=== PATIENT | female | born 1950 | race Asian ===

== ENCOUNTER 2018-12-30 19:49 | Emergency (ER) | payer OTHER ==
[~2018-12-30] VITALS: Ht 153 cm; Wt 53.6 kg
[2018-12-30] MEDS ORDERED: LOSA50TA64 PO (20:08)
[2018-12-30] MEDS ORDERED: ROSU10TA22 PO (20:08)
[2018-12-30] MEDS ORDERED: LORA10TA7 PO (20:08)
[2018-12-30 21:30] VITALS: BP 148/83
[2018-12-30] MEDS ORDERED: DiphenhydrAMINE HCL 25 MG CAPSULE PO ONE (22:00)
[2018-12-30] MEDS ORDERED: CLINDAMYCIN HCL 150 MG CAPSULE PO ONE (22:00)
== END 2018-12-30 22:30 | disposition home or self-care (01) ==
LOC: EMS 19:53
DX: H04.123 Dry eye syndrome of bilateral lacrimal glands (principal); T49.5X5A Adverse effect of ophthalmological drugs and preparations, initial encounter; E78.00 Pure hypercholesterolemia, unspecified; I10 Essential (primary) hypertension; Z90.49 Acquired absence of other specified parts of digestive tract; Z79.899 Other long term (current) drug therapy; Y92.89 Other specified places as the place of occurrence of the external cause

== ENCOUNTER 2019-03-03 13:50 | Emergency (ER) | payer MEDICAID, OTHER ==
[~2019-03-03] VITALS: Ht 152.4 cm; Wt 52.7 kg
[~2019-03-03 13:50] MED LIST: LORA10TA7 PO; LOSA50TA64 PO; ROSU10TA22 PO
[2019-03-03 16:22] LABS: BASOPHILS % (AUTO) 0.7 % (0.0-2.0); EOSINOPHILS % (AUTO) 2.7 % (1.0-6.0); HEMOGLOBIN 16.6 g/dL (12.0-16.0); LYMPHOCYTES # (AUTO) 1.8 K/uL (1.0-4.8); LYMPHOCYTES % (AUTO) 32.8 % (22.0-44.0); MEAN CORPUSCULAR HEMOGLOBIN 32.7 pg (26.0-34.0); MEAN CORPUSCULAR HGB CONC 34.6 G/dL (31.0-37.0); MEAN CORPUSCULAR VOLUME 95 fL (80-100); MONOCYTES # (AUTO) 0.4 K/uL (0.1-1.0); MONOCYTES % (AUTO) 6.7 % (2.0-9.0); NEUTROPHILS # (AUTO) 3.1 K/uL (1.8-7.7); NEUTROPHILS % (AUTO) 57.1 % (40.0-70.0); PLATELET COUNT (AUTO) 161 K/uL (150-450); RED BLOOD CELL COUNT(AUTO) 5.07 MIL/uL (4.00-5.20); RED CELL DISTRIBUTION WIDTH 13.6 % (11.5-14.5)
[2019-03-03 16:32] LABS: CREATININE 1.05 mg/dL (0.60-1.30); POTASSIUM 3.5 mmol/L (3.5-5.1)
[2019-03-03 16:37] LABS: ALBUMIN 4.1 g/dL (3.4-5.0); BILIRUBIN,TOTAL 0.3 mg/dL (0.1-1.0); TOTAL PROTEIN, SERUM 8.2 g/dL (6.4-8.2)
[2019-03-03 17:37] VITALS: BP 142/86
== END 2019-03-03 17:57 | disposition home or self-care (01) ==
LOC: EMS 13:52
DX: R42 Dizziness and giddiness (principal); R51 Headache; R10.84 Generalized abdominal pain; E78.00 Pure hypercholesterolemia, unspecified; I10 Essential (primary) hypertension; Z90.49 Acquired absence of other specified parts of digestive tract; Z98.890 Other specified postprocedural states; Z79.899 Other long term (current) drug therapy
CPT/HCPCS: 70450; 93005